=== PATIENT | male | born 1935 | race Caucasian/White ===

== ENCOUNTER → 2024-06-11 16:19 | Outpatient (REF) | payer MEDICARE, BC, SELFPAY ==
[2024-06-11 16:47] LABS: % Basophils 0.7 % (0-2); % Eosinophils 1.7 % (0-6); % Immature Granulocytes 0.3 % (0-0.5); % Lymphocytes 40.3 % (20.5-51.1); % Monocytes 10.8 % (1.7-9.3); % Neutrophils 46.2 % (42.2-75.2); Absolute Eosinophils 0.1 10^3/uL (0-0.7); Absolute Lymphocytes 2.4 10^3/uL (1.2-3.4); Absolute Monocytes 0.6 10^3/uL (0.1-0.6); Absolute Neutrophils 2.7 10^3/uL (1.4-6.5); Hematocrit 34.7 % (39.0-52.0); Hemoglobin 12.5 g/dL (13.0-18.0); Mean Corpuscular Hgb 34.1 pg (27.0-31.0); Mean Corpuscular Volume 94.6 fL (80.0-94.0); Mean Platelet Volume 10.2 fL (7.4-10.4); Nucleated Red Blood Cells % 0 % (-); Platelet Count 161 10^3/uL (130-400); Red Blood Cell Count 3.67 10^6/uL (4.70-6.10); White Blood Cell Count 5.9 10^3/uL (4.8-10.8)
[2024-06-11 17:21] LABS: Microalbumin, Random Urine 2.5 mg/dl (0.6-1.7); Microalbumin/creatinine Ratio 12.2 mg/g
[2024-06-11 17:30] LABS: Blood Urea Nitrogen 18 mg/dl (9-20); Calcium 9.1 mg/dl (8.4-10.2); Carbon Dioxide 26 mmol/L (22-30); Chloride 106 mmol/L (98-107); Glucose 112 mg/dl (70-99); Potassium 4.7 mmol/L (3.5-5.1); Sodium 140 mmol/L (135-145); eGFR 44.23
== END ==
LOC: REG 16:19
PROVIDERS: ATTENDING PHYSICIAN Registered Nurse Ambulatory Care
DX: Z79.01 Long term (current) use of anticoagulants (principal); N18.30 Chronic kidney disease, stage 3 unspecified
CPT/HCPCS: 36415; 80048; 82043; 82570; 85025

== ENCOUNTER → 2024-07-16 09:48 | Outpatient (REF) | payer MEDICARE, BC, SELFPAY | LOC: HWRAD 09:48 | PROVIDERS: ATTENDING PHYSICIAN Registered Nurse Ambulatory Care; FAMILY PHYSICIAN Family Medicine | DX: N18.30 Chronic kidney disease, stage 3 unspecified (principal) | CPT/HCPCS: 76770 ==

== ENCOUNTER → 2024-09-01 13:31 | Outpatient (REF) | payer MEDICARE, BC, SELFPAY | LOC: HWLAB 13:31 | PROVIDERS: ATTENDING PHYSICIAN Family Medicine | DX: Z85.46 Personal history of malignant neoplasm of prostate (principal); M54.50 Low back pain, unspecified; G89.29 Other chronic pain | CPT/HCPCS: 72110 ==

== ENCOUNTER → 2024-09-10 11:17 | Outpatient (REF) | payer MEDICARE, BC, SELFPAY | LOC: HWRAD 11:17 | PROVIDERS: ATTENDING PHYSICIAN Family Medicine | DX: D17.30 Benign lipomatous neoplasm of skin and subcutaneous tissue of unspecified sites (principal) | CPT/HCPCS: 76536 ==

== ENCOUNTER → 2024-09-12 15:44 | Outpatient (REF) | payer MEDICARE, BC, SELFPAY | LOC: HWRAD 15:44 | PROVIDERS: ATTENDING PHYSICIAN Family Medicine | DX: D17.0 Benign lipomatous neoplasm of skin and subcutaneous tissue of head, face and neck (principal) | CPT/HCPCS: 70490 ==